=== PATIENT | male | born 1970 | race Caucasian/White ===

== ENCOUNTER → 2018-03-13 | Outpatient (CLI) | payer OTHER ==
[~2018-03-13] MED LIST: BENTYL10 MG PO; METAMUCIL PACK1 EACH PO
--- NOTE | 2018-03-14 12:28 | Diagnostic Imaging Report ---
PROCEDURE:ABDOMEN-1VIEW (KUB) TECHNIQUE:Supine AP abdomen INDICATION:Followup kidneys COMPARISON:Patients [facility], , ABDOMEN-1VIEW (KUB), 06/19/2017, 18:09. FINDINGS: See conclusion. CONCLUSION: 1. No conspicuous calcifications over the kidneys or ureters. 2. Stable subcentimeter pelvic phleboliths. 3. Normal bowel gas pattern and skeleton. Dictated by: Len Dunbar M.D. on 03/14/2018 at 12:30 Electronically approved by: Len Dunbar M.D. on 03/14/2018 at 12:30
== END ==
LOC: RAD 16:58
PROVIDERS: ATTEND Urology
DX: N20.0 Calculus of kidney (principal)
CPT/HCPCS: 74018

== ENCOUNTER → 2018-12-01 | Day surgery (SDC) | payer BC ==
[~2018-12-01] MED LIST changes: +ALLOPURINOL300 MG PO; +FENTANYL CITRATE/PF 100MCG/2 ML INJ ONE; +HYOSCYAMINE SULFATE 0.5 MG/ML INJ ONE; +IBUPROFEN; +LIDOCAINE HCL 2% LOCAL INJ 5 ML SDV VIAL INJ ONE; +MIDAZOLAM HCL 2 MG/2 ML VIAL ONE; +PROPOFOL IV EMULSION 10 MG/ML 50 ML VIAL ONE
--- NOTE | 2018-12-01 20:18 | Operative Report ---
DATE OF PROCEDURE: December 01, 2018 REFERRING PHYSICIAN: Dr. Danis Meyer. PROCEDURE PERFORMED: Colonoscopy and polypectomy. INDICATIONS FOR COLONOSCOPY: Colorectal cancer screening, paternal grandmother with colon cancer. MEDICATION: Patient was done under MAC. Please see anesthesiologist's note. PROCEDURE: With the patient in left lateral decubitus position, a flexible fiberoptic Olympus colonoscope was inserted into the rectum with ease and advanced all the way to the cecum. One polyp was hot biopsied from the cecum. The ascending colon appeared to be within normal limits. One polyp was hot biopsied from the transverse colon. One polyp was hot biopsied from the descending colon and polypectomy site was hemoclipped. The sigmoid and rectum appeared to be within normal limits. The scope was then retroflexed into the distal rectum and small internal hemorrhoids were noted, none of which was actively bleeding. The scope was then straightened out and was subsequently withdrawn. Patient tolerated the procedure well. IMPRESSION 1. Cecal polyp, hot biopsied. 2. Transverse colon polyp, hot biopsied. 3. Descending colon polyp, hot biopsied and polypectomy site hemoclipped. 4. Internal hemorrhoids, none actively bleeding. PLAN: Follow up histology. Initiate high-fiber, low-fat diet. Patient might benefit from a followup colonoscopy in 3 years. Job#: [id number] RTY cc:DANIS MEYER MD
--- OUTSIDE RECORDS SUMMARY | 2018-12-03 11:58 | XMS REPORT ---
Author Author [facility] Address Unknown Phone Unavailable Care Team Providers Care Outside [employer] Consultant Name Role Phone DANIS FUCHS Unavailable Unavailable Problems This patient has no known problems. Allergies, Adverse Reactions, Alerts This patient has no known allergies or adverse reactions. Medications This patient has no known medications. Results Test Description Test Time Test Comments Text Results Atomic Results Result Comments ABDOMEN-1VIEW (KUB) [place] [address] Patient Name: LAKHWINDER HUTCHINSON MR #: [id number] : 1970 Age/Sex: 47/M Req #: [id number] Adm Physician: Ordered by: DANIS FUCHS MD Report #: [id number] Location: [facility] Room/Bed: Procedure: [id number] DX/ABDOMEN-1VIEW (KUB) Exam Date: 03/13/18 Exam Time: 1710 REPORT STATUS: Signed PROCEDURE: ABDOMEN-1VIEW (KUB) TECHNIQUE: Supine AP abdomen INDICATION: Followup kidneys COMPARISON: [facility], [facility], ABDOMEN-1VIEW (KUB), 06/19/2017, 18:09. FINDINGS: See conclusion. CONCLUSION: 1. No conspicuous calcifications over the kidneys or ureters. 2. Stable subcentimeter pelvic phleboliths. 3. Normal bowel gas pattern and skeleton. Dictated by: Alban Dunbar M.D. on 03/14/2018 at 12:30 Electronically approved by: Alban Dunbar M.D. on 03/14/2018 at 12:30 Dictated By: ALBAN DUNBAR MD 1230 Transcribed By: GISELA on 03/14/18 1230 COPY TO: DANIS FUCHS MD
== END | disposition home or self-care (01) ==
LOC: ENDO 13:52
PROVIDERS: ATTEND Internal Medicine Gastroenterology
DX: Z12.11 Encounter for screening for malignant neoplasm of colon (principal); D12.3 Benign neoplasm of transverse colon; K64.8 Other hemorrhoids; K63.5 Polyp of colon; Z87.442 Personal history of urinary calculi; Z80.0 Family history of malignant neoplasm of digestive organs; R93.2 Abnormal findings on diagnostic imaging of liver and biliary tract
CPT/HCPCS: 45384; 93005; J1980; J2001; J2250

== ENCOUNTER → 2019-03-25 | Outpatient (CLI) | payer BC ==
[~2019-03-25] MED LIST changes: -FENTANYL CITRATE/PF 100MCG/2 ML INJ ONE; -HYOSCYAMINE SULFATE 0.5 MG/ML INJ ONE; -LIDOCAINE HCL 2% LOCAL INJ 5 ML SDV VIAL INJ ONE; -MIDAZOLAM HCL 2 MG/2 ML VIAL ONE; -PROPOFOL IV EMULSION 10 MG/ML 50 ML VIAL ONE
--- NOTE | 2019-03-25 10:21 | Diagnostic Imaging Report ---
Exam: Abdominal film Clinical History: Renal calculus Comparison: None. DISCUSSION: No suspicious calcifications project over the renal shadows, expected ureteral courses. Bilateral round, lucent centered pelvic calcifications likely represent phleboliths. Bowel gas pattern is nonobstructive. No mass effect or organomegaly. Regional skeletal structures are intact. IMPRESSION: No plain radiographic evidence of urolithiasis. Signed by: Dr. Everardo Alexander M.D. on 03/25/2019 10:17 AM
== END ==
LOC: RAD 09:35
PROVIDERS: ATTEND Urology
DX: N20.0 Calculus of kidney (principal)
CPT/HCPCS: 74018

== ENCOUNTER → 2020-04-15 | Outpatient (CLI) | payer BC ==
--- NOTE | 2020-04-16 00:14 | Diagnostic Imaging Report ---
EXAM: Abdomen Radiograph 1 View(s) INDICATION: Calculus of kidney COMPARISON: Abdominal x-ray 03/25/2019 FINDINGS: No abnormalities in the lower chest. No lines or tubes. Normal volume of stool in the colon. No dilated loops of small bowel. Questionable 7 mm right renal inferior pole calculus. No abnormal soft tissue masses. No pneumoperitoneum. No acute osseous abnormality. Mild degenerative changes in the lumbar spine and pelvis. IMPRESSION: Questionable 7 mm right renal inferior pole calculus. Signed by: Eric Victor DO on 04/16/2020 12:11 AM
== END ==
LOC: RAD 17:08
PROVIDERS: ATTEND Urology
DX: N20.0 Calculus of kidney (principal)
CPT/HCPCS: 74018

== ENCOUNTER → 2020-05-20 | Outpatient (CLI) | payer BC, SELFPAY ==
--- NOTE | 2020-05-20 16:41 | Diagnostic Imaging Report ---
EXAM: CT Abdomen and Pelvis WITHOUT intravenous contrast INDICATION: Renal calculus COMPARISON: KUB 04/15/2020 TECHNIQUE: Abdomen and pelvis were scanned utilizing a multidetector helical scanner from the lung base to the pubic symphysis without administration of IV contrast. Coronal and sagittal reformations were obtained. IV CONTRAST: None ORAL CONTRAST: Water COMPLICATIONS: None RADIATION DOSE: Total DLP: 750 mGy*cm Dose modulation, iterative reconstruction, and/or weight based adjustment of the mA/kV was utilized to reduce the radiation dose to as low as reasonably achievable. FINDINGS: LOWER THORAX: Normal. HEPATOBILIARY: 2.1 cm left hepatic mass and 2.1 cm right hepatic mass are indeterminate on this noncontrast imaging study. Unremarkable gallbladder. SPLEEN: No splenomegaly. PANCREAS: No focal masses or ductal dilatation. ADRENALS: No adrenal nodules. KIDNEYS/URETERS: Multiple bilateral nonobstructive renal calculi measure up to 4 mm at the right upper pole, 4 mm at the left upper pole, 4 mm at the left mid pole. 1.7 cm right renal cyst and 1.2 cm left renal cyst. PELVIC ORGANS/BLADDER: Unremarkable. PERITONEUM / RETROPERITONEUM: No free air or fluid. LYMPH NODES: No lymphadenopathy. VESSELS: Unremarkable. GI TRACT: Diverticulosis without CT evidence of diverticulitis. No abnormal bowel thickening. No bowel obstruction. Redundant cecum. Normal appendix. BONES AND SOFT TISSUES: No acute osseous injury. IMPRESSION: Bilateral nonobstructive renal calculi measure up to 4 mm. No hydronephrosis. Indeterminate 2.1 cm masses in the right and left liver. Recommend liver mass protocol CT or MRI for further evaluation. Diverticulosis without CT evidence of diverticulitis. Signed by: Sebastian Aguilera MD on 05/20/2020 4:37 PM
== END ==
LOC: CT 13:31
PROVIDERS: ATTEND Urology
DX: N20.0 Calculus of kidney (principal)
CPT/HCPCS: 74176

== ENCOUNTER → 2020-09-04 | Day surgery (SDC) | payer BC, OTHER ==
[2020-09-01 13:25] LABS: BASOPHILS % 0.9 % (0.0-1.0); EOSINOPHILS # (AUTO) 0.1 (0.0-0.4); EOSINOPHILS % 1.2 % (0.0-6.0); HEMATOCRIT 36.3 % (38.2-49.6); HEMOGLOBIN 12.2 g/dL (14.0-18.0); LYMPHOCYTES # (AUTO) 1.1 (1.0-3.2); LYMPHOCYTES % 24.5 % (18.0-39.1); MEAN CORPUSCULAR HEMOGLOBIN 30.5 pg (28-32); MEAN CORPUSCULAR HGB CONC 33.6 g/dL (31-35); MEAN CORPUSCULAR VOLUME 90.8 fL (81-99); MONOCYTES # (AUTO) 0.4 (0.2-0.8); MONOCYTES % 8.2 % (4.4-11.3); NEUTROPHILS # (AUTO) 2.8 (2.1-6.9); PLATELET COUNT 142 x10e3/uL (140-360); RED CELL DISTRIBUTION WIDTH 12.9 % (11.7-14.4)
[2020-09-01 13:44] LABS: ANION GAP 12.4 mmol/L (8-16); BLOOD UREA NITROGEN 13 mg/dL (7-26); BUN/CREATININE RATIO 14 (6-25); CALCIUM 9.1 mg/dL (8.4-10.2); CARBON DIOXIDE 27 mmol/L (22-29); CHLORIDE 107 mmol/L (98-107); CREATININE, SERUM 0.92 mg/dL (0.72-1.25); EST GLOMERULAR FILTRATION RATE > 60 ML/MIN (60-); GLUCOSE 84 mg/dL (74-118); POTASSIUM 4.4 mmol/L (3.5-5.1); SODIUM 142 mmol/L (136-145)
--- NOTE | 2020-09-01 14:21 | Diagnostic Imaging Report ---
Abdomen, one view INDICATION: ^[id number] ^[id number] ^PRE OP Comparison: CT dated 05/20/2020. Discussion: Overlying bowel gas limits evaluation. No radiographically apparent renal calculi are identified. Nonobstructive bowel gas pattern. No acute osseous abnormality. IMPRESSION: No radiographically apparent renal calculi. Signed by: Jewel Olsen MD on 09/01/2020 2:18 PM
[~2020-09-04] MED LIST changes: +B&O 60MG R/S 60 MG SUPP PR ONE; +CEFTRIAXONE SOD 1 GM/NS 50 ML 50 ML IV ONE; +COUGH DROPS1 EACH PO; +DEXAMETHASONE SOD PHOS INJ 4 MG/ML VIAL ONE; +EMERGEN-C 1,01000 MG PO; +EPHEDRINE SULFATE INJ 50 MG/ML VIAL ONE; +FENTANYL CITRATE/PF 100MCG/2 ML INJ ONE; +GLYCOPYRROLATE INJ 0.2 MG/ML VIAL ONE; +IOPAMIDOL 300MG/ML 50ML INFUS..BTL IV ONE; +LIDOCAINE HCL 2% LOCAL INJ 5 ML SDV VIAL INJ ONE; +MIDAZOLAM HCL 2 MG/2 ML VIAL ONE; +ONDANSETRON HCL INJ 2MG/ML 2ML 2 MG/ML VIAL ONE; +PROPOFOL IV EMULSION 10 MG/ML 20 ML VIAL ONE; +SEVOFLURANE INHAL SOLN 250 ML PEN BTL ONE
[2020-09-04 11:00] VITALS: BP 123/80
--- NOTE | 2020-09-05 04:07 | Operative Report ---
DATE OF PROCEDURE: 09/04/2020 SURGEON: Domingo Meyer MD PREOPERATIVE DIAGNOSES: 1. Bilateral nephrolithiasis. 2. Possible renal colic. POSTOPERATIVE DIAGNOSES: 1. Bilateral nephrolithiasis. 2. Possible renal colic. OPERATION PERFORMED: 1. Cystoscopy with bilateral ureteral catheterization and retrograde ureteropyelography (separate procedure performed to evaluate the patient's potential renal colic). 2. Interpretation of retrograde ureteropyelography. 3. Supervision of fluoroscopy, no radiologist present. 4. Left-sided extracorporeal shockwave lithotripsy (separate procedure performed in staged procedure for nephrolithiasis). ANESTHESIA: General. COMPLICATIONS: None. CLINICAL SUMMARY: Oscar Rico is a 49-year-old man with recurrent bilateral nephrolithiasis. The patient was noted to have recurrent stones on the CT. They were around 4 mm stones bilaterally. The patient wants management of the stones and fragmentation, so that they may make the stone passage easier. He is aware of the risks of bleeding, infection, injury to adjacent structures, need for additional procedures, and elected to proceed. OPERATIVE PROCEDURE IN DETAIL: Informed consent was verified. Oscar Rico was properly identified, taken to the operating room, and placed in the lithotripsy table in supine position and anesthesia was uneventfully begun. The stones could not be visualized fluoroscopically. The patient was then carefully and gently repositioned in dorsal lithotomy position with all pressure points well padded. His genitalia were prepared and draped in usual sterile fashion. The cystoscope sheath with visual obturator in place was atraumatically inserted into the patient's urethra, it was guided unremarkable down the unremarkable distal urethra, through normal sphincteric region through the prostate bed, which exhibited kissing lateral lobes and a minor median bar. We entered into the patient's bladder, where panendoscopy revealed trabeculations, but there were no tumors, no stones, and no diverticula. A ureteral catheter was used to cannulate each ureter and retrograde ureteropyelograms were performed. Interpretation of retrograde ureteropyelography contrast was instilled in retrograde fashion bilaterally. I could not visualize the filling defect that corresponds to the stone noted on CT. It is possible the stone has passed or it may just be a Loc's plaque. On the left side, we saw filling defect in the upper pole calyx that correspond to the CT. Therefore, we utilized that localization to perform lithotripsy. A total of 3000 shocks were delivered. The patient's bladder was drained and cystoscope was withdrawn. Belladonna and opium suppository were placed revealing a 40 g prostate, smooth and nonfluctuant without any nodules. The patient was then uneventfully reversed from anesthesia and taken to recovery room in stable condition. There were no complications to the procedure. The patient tolerated procedure well. I informed the patient's that he really should restart his doxazosin, which he stopped because he did not think it made a difference to his nocturia. The nocturia was improved with quitting caffeine, instructed to her that based on the BPH appearance, he should probably be on the alpha luis medication. I recommend he restart it. We will follow the patient up for uroflowmetry and bladder ultrasonography in the office. MD RAHEEM Huerta/VINH /[id number]
== END | disposition home or self-care (01) ==
LOC: OR 07:00
PROVIDERS: ATTEND Urology
DX: N20.0 Calculus of kidney (principal); N32.89 Other specified disorders of bladder; N28.89 Other specified disorders of kidney and ureter; N40.0 Benign prostatic hyperplasia without lower urinary tract symptoms; R35.1 Nocturia; Z01.810 Encounter for preprocedural cardiovascular examination; Z01.812 Encounter for preprocedural laboratory examination; Z01.818 Encounter for other preprocedural examination; Z11.59 Encounter for screening for other viral diseases
CPT/HCPCS: 36415; 50590; 74018; 80048; 84550; 85025; 93005; C1758; J0696; J1100; J2001; J2250; J2405; J2704; J3010; Q9967; U0002

== ENCOUNTER → 2020-09-09 | Outpatient (CLI) | payer BC ==
[~2020-09-09] MED LIST changes: -B&O 60MG R/S 60 MG SUPP PR ONE; -CEFTRIAXONE SOD 1 GM/NS 50 ML 50 ML IV ONE; -DEXAMETHASONE SOD PHOS INJ 4 MG/ML VIAL ONE; -EPHEDRINE SULFATE INJ 50 MG/ML VIAL ONE; -FENTANYL CITRATE/PF 100MCG/2 ML INJ ONE; -GLYCOPYRROLATE INJ 0.2 MG/ML VIAL ONE; -IOPAMIDOL 300MG/ML 50ML INFUS..BTL IV ONE; +IOPAMIDOL 370 MG/ML 200 ML INFUS..BTL INJ ONE; -LIDOCAINE HCL 2% LOCAL INJ 5 ML SDV VIAL INJ ONE; -MIDAZOLAM HCL 2 MG/2 ML VIAL ONE; -ONDANSETRON HCL INJ 2MG/ML 2ML 2 MG/ML VIAL ONE; -PROPOFOL IV EMULSION 10 MG/ML 20 ML VIAL ONE; -SEVOFLURANE INHAL SOLN 250 ML PEN BTL ONE; +SODIUM CHLORIDE 0.9% 50ML 50 ML ONE
== END ==
LOC: CT 09:33
PROVIDERS: ATTEND Urology
DX: K76.89 Other specified diseases of liver (principal); R16.0 Hepatomegaly, not elsewhere classified
CPT/HCPCS: 74170; Q9967

== ENCOUNTER → 2021-12-06 | Outpatient (CLI) | payer OTHER ==
[~2021-12-06] MED LIST changes: -IOPAMIDOL 370 MG/ML 200 ML INFUS..BTL INJ ONE; -SODIUM CHLORIDE 0.9% 50ML 50 ML ONE
== END ==
LOC: RAD 11:03
PROVIDERS: ATTEND Urology
DX: N20.0 Calculus of kidney (principal)
CPT/HCPCS: 74018